=== PATIENT | female | born 1945 | race Caucasian/White ===

== ENCOUNTER 2021-11-11 13:31 | Observation (INO) ==
[2021-11-11 15:00] LABS: Basophils % 0.5 %; Immature Granulocytes % 0.4 % (0-4)
[2021-11-11 15:02] LABS: Basophils # 0.1 K/mcL (0.0-0.2); Eosinophils # 0.5 K/mcL (0.0-0.6); Eosinophils % 4.6 %; Hematocrit 23.2 % (35.3-44.9); Hemoglobin 6.4 g/dL (11.5-15.4); Lymphocytes # 1.2 K/mcL (0.6-4.6); Mean Corpuscular HGB Conc 27.6 g/dL (31.6-35.5); Mean Corpuscular Hemoglobin 19.7 pg (28.0-33.3); Mean Corpuscular Volume 71.4 fL (83.0-100.0); Mean Platelet Volume 9.7 fL (9.4-12.4); Monocytes # 0.9 K/mcL (0.0-1.3); Monocytes % 7.9 %; Neutrophils # 8.9 K/mcL (1.6-8.9); Platelet Count 310 K/mcL (140-400); Red Blood Count 3.25 M/mcL (3.82-4.97); Red Cell Distribution Width 18.6 % (11.5-14.5); Segmented Neutrophils % 76.6 %; White Blood Count 11.6 K/mcL (4.3-11.1)
[2021-11-11 15:21] LABS: BUN/Creatinine Ratio 23 (6-26); Blood Urea Nitrogen 12 mg/dL (8-23); Calcium 8.5 mg/dL (8.6-10.3); Carbon Dioxide 29 mEq/L (23-29); Chloride 109 mEq/L (98-107); Glucose 119 mg/dL (70-105); Osmolality,Calculated 287 (280-300); Potassium 3.4 mEq/L (3.5-5.1); Sodium 138 mEq/L (136-145); Troponin I 0.05 ng/mL (< 0.04); eGFR For African Americans > 60 (> 60); eGFR For Non-African Americans > 60 (> 60)
[2021-11-11 15:23] LABS: Anisocytosis 1+ (Not Present); Hypochromasia Present (Not Present); Platelet Estimate Normal (Normal)
[2021-11-11] MEDS ORDERED: Ondansetron 4 MG/2 ML VIAL IVP PRN (16:23)
[2021-11-11] MEDS ORDERED: Acetaminophen 325 MG TABLET PO PRN (16:23)
[2021-11-11] MEDS ORDERED: Naloxone 0.4 MG/ML INJ IVP PRN (16:23)
[2021-11-11] MEDS ORDERED: Perflutren Lipid Microsphere 1.3 ML in 0.9 % Sodium Chloride 8.7 ML IVP PRN (16:26)
[2021-11-11] MEDS ORDERED: Furosemide 40 MG/4 ML VIAL IVP ONE (16:26)
[2021-11-11] MEDS ORDERED: Ipratropium/Albuterol Neb 3 ML IH PRN (16:35)
[2021-11-11 17:07] LABS: Influenza A PCR Negative (Negative); Influenza B PCR Negative (Negative); Resp. Syncytial Virus PCR Negative (Negative)
[2021-11-11 17:30] LABS: SARS-CoV-2 by PCR (In House) Negative (Negative)
[2021-11-11] MEDS: predniSONE 20 MG TABLET PO SCH (18:06)
[2021-11-11] MEDS ORDERED: 0.9 % Sodium Chloride 250 ML ONE (18:47)
[2021-11-11] MEDS: Ipratropium/Albuterol Neb 3 ML IH SCH (22:54)
[2021-11-11 23:07] LABS: Hemoglobin 7.9 g/dL (11.5-15.4)
[2021-11-12] MEDS: Ipratropium/Albuterol Neb 3 ML IH SCH ×5 (04:34→20:32)
[2021-11-12 06:20] LABS: Basophils % 0.3 %; Eosinophils % 0.1 %; Immature Granulocytes % 0.5 % (0-4); Red Cell Distribution Width 18.9 % (11.5-14.5)
[2021-11-12 06:22] LABS: Hematocrit 26.7 % (35.3-44.9); Hemoglobin 7.4 g/dL (11.5-15.4); Lymphocytes # 0.7 K/mcL (0.6-4.6); Lymphocytes % 6.3 %; Mean Corpuscular HGB Conc 27.7 g/dL (31.6-35.5); Mean Corpuscular Hemoglobin 20.1 pg (28.0-33.3); Mean Corpuscular Volume 72.4 fL (83.0-100.0); Mean Platelet Volume 10.2 fL (9.4-12.4); Monocytes # 0.5 K/mcL (0.0-1.3); Monocytes % 3.9 %; Neutrophils # 10.4 K/mcL (1.6-8.9); Platelet Count 291 K/mcL (140-400); Red Blood Count 3.69 M/mcL (3.82-4.97); Segmented Neutrophils % 88.9 %; White Blood Count 11.7 K/mcL (4.3-11.1)
[2021-11-12 06:35] LABS: INR 1.1; Prothrombin Time 12.4 Seconds (9.4-12.1)
[2021-11-12 06:52] LABS: Anisocytosis 1+ (Not Present); BUN/Creatinine Ratio 25 (6-26); Blood Urea Nitrogen 13 mg/dL (8-23); Calcium 8.8 mg/dL (8.6-10.3); Carbon Dioxide 29 mEq/L (23-29); Chloride 105 mEq/L (98-107); Glucose 145 mg/dL (70-105); Hypochromasia Present (Not Present); Magnesium 1.8 mg/dL (1.6-2.6); Osmolality,Calculated 293 (280-300); Platelet Estimate Normal (Normal); Potassium 3.8 mEq/L (3.5-5.1); Sodium 140 mEq/L (136-145); Total Protein 6.1 g/dL (6.4-8.9); eGFR For African Americans > 60 (> 60); eGFR For Non-African Americans > 60 (> 60)
[2021-11-12 06:53] LABS: Chol/HDL Ratio 2.9 (0-4.9); Cholesterol 106 mg/dL (< 200); HDL Cholesterol 37 mg/dL (40-59); LDL Cholesterol,Calculated 60 mg/dL (< 100); Lactate Dehydrogenase 156 Units/L (140-271); Triglycerides 45 mg/dL (< 150); Troponin I 0.03 ng/mL (< 0.04)
[2021-11-12 07:40] LABS: Ferritin 8 ng/mL (10-120); Iron < 10 mcg/dL (50-170); Thyroid Stimulating Hormone 1.419 mcIU/mL (0.340-5.600)
[2021-11-12] MEDS: predniSONE 20 MG TABLET PO SCH (07:42)
[2021-11-12] MEDS: Aspirin Enteric Coated 81 MG Tablet PO SCH (10:44)
[2021-11-12] MEDS ORDERED: Furosemide 40 MG/4 ML VIAL IVP ONE (11:03)
[2021-11-12] MEDS ORDERED: Iron Sucrose Complex 400 MG in 0.9 % Sodium Chloride 250 ML IVPB ONE (11:03)
[2021-11-12 16:43] LABS: RBC,Pleural Fluid < 2000 RBC/mcL
[2021-11-12] MEDS ORDERED: SODIUM CHLORIDE/NAHCO3/KCL/PEG 4,000 ML SOLN.RECON PO ONE (17:00)
[2021-11-12 17:04] LABS: Total Protein,Pleural Fluid 4.2 g/dL
[2021-11-12 17:26] LABS: Appearance of Pleural Fl Hazy (Clear)
[2021-11-12 17:31] LABS: Basophils,Pleural Fluid 0 %; Eosinophils,Pleural Fluid 0 %
[2021-11-13 03:11] LABS: Eosinophils % 0.3 %; Monocytes % 7.4 %
[2021-11-13 03:12] LABS: Basophils % 0.1 %; Hemoglobin 7.9 g/dL (11.5-15.4); Immature Granulocytes % 0.5 % (0-4); Lymphocytes # 1.4 K/mcL (0.6-4.6); Lymphocytes % 8.9 %; Mean Corpuscular HGB Conc 28.2 g/dL (31.6-35.5); Mean Corpuscular Hemoglobin 20.3 pg (28.0-33.3); Mean Corpuscular Volume 71.8 fL (83.0-100.0); Mean Platelet Volume 9.5 fL (9.4-12.4); Monocytes # 1.2 K/mcL (0.0-1.3); Platelet Count 303 K/mcL (140-400); Red Cell Distribution Width 19.5 % (11.5-14.5); Segmented Neutrophils % 82.8 %; White Blood Count 15.7 K/mcL (4.3-11.1)
[2021-11-13 03:13] LABS: Eosinophils # 0.1 K/mcL (0.0-0.6)
[2021-11-13 03:28] LABS: BUN/Creatinine Ratio 25 (6-26); Blood Urea Nitrogen 16 mg/dL (8-23); Calcium 8.7 mg/dL (8.6-10.3); Carbon Dioxide 29 mEq/L (23-29); Chloride 104 mEq/L (98-107); Glucose 125 mg/dL (70-105); Osmolality,Calculated 289 (280-300); Potassium 3.6 mEq/L (3.5-5.1); Sodium 138 mEq/L (136-145); eGFR For African Americans > 60 (> 60); eGFR For Non-African Americans > 60 (> 60)
[2021-11-13 03:30] LABS: Hypochromasia Present (Not Present); Large Platelets Present (Not Present); Platelet Estimate Normal (Normal); Polychromasia 1+ (Not Present)
[2021-11-13] MEDS: Ipratropium/Albuterol Neb 3 ML IH SCH ×2 (04:19→08:21)
[2021-11-13 07:23] VITALS: BP 135/68; PULSE 90; TEMP 98; O2SAT 92
[2021-11-13] MEDS: Aspirin Enteric Coated 81 MG Tablet PO SCH (08:29)
[2021-11-13] MEDS: predniSONE 20 MG TABLET PO SCH (08:29)
[2021-11-14 13:23] LABS: Transferrin 288 mg/dL (200-400)
[2021-11-15 08:25] LABS: Fluid Source for Cholesterol PLEURAL FLUID
[2021-11-15 12:28] LABS: Cholesterol,Body Fluid 75 mg/dL
== END 2021-11-13 11:11 | disposition left against medical advice (07) ==
LOC: 3ANU 13:31 → EMEROOARM 13:31 → SUATTDRO 16:53 → 3ANU 17:21
PROVIDERS: ADMIT Family Medicine; ATTEND Internal Medicine

== ENCOUNTER 2021-12-17 12:36 | Observation (INO) ==
[2021-12-17 13:25] LABS: Hemoglobin 8.1 g/dL (11.5-15.4); Immature Granulocytes % 0.4 % (0-4); Mean Platelet Volume 9.6 fL (9.4-12.4); Red Cell Distribution Width 23.7 % (11.5-14.5)
[2021-12-17 13:27] LABS: Basophils # 0.1 K/mcL (0.0-0.2); Basophils % 0.5 %; Eosinophils # 0.4 K/mcL (0.0-0.6); Eosinophils % 3.7 %; Hematocrit 28.1 % (35.3-44.9); Lymphocytes % 10.2 %; Mean Corpuscular HGB Conc 28.8 g/dL (31.6-35.5); Mean Corpuscular Hemoglobin 22.8 pg (28.0-33.3); Mean Corpuscular Volume 79.2 fL (83.0-100.0); Monocytes # 0.7 K/mcL (0.0-1.3); Neutrophils # 7.8 K/mcL (1.6-8.9); Platelet Count 259 K/mcL (140-400); Red Blood Count 3.55 M/mcL (3.82-4.97); Segmented Neutrophils % 78.2 %
[2021-12-17 14:01] LABS: Anisocytosis 2+ (Not Present); Hypochromasia Present (Not Present); Platelet Estimate Normal (Normal)
[2021-12-17 14:19] LABS: BUN/Creatinine Ratio 36 (6-26); Blood Urea Nitrogen 27 mg/dL (8-23); Calcium 8.9 mg/dL (8.6-10.3); Carbon Dioxide 29 mEq/L (23-29); Chloride 107 mEq/L (98-107); Glucose 91 mg/dL (70-105); Osmolality,Calculated 303 (280-300); Potassium 3.8 mEq/L (3.5-5.1); Sodium 144 mEq/L (136-145); Troponin I 0.05 ng/mL (< 0.04); eGFR For African Americans > 60 (> 60); eGFR For Non-African Americans > 60 (> 60)
[2021-12-17 15:42] LABS: Lactate Dehydrogenase 165 Units/L (140-271); Total Protein 6.3 g/dL (6.4-8.9)
[2021-12-17] MEDS ORDERED: Naloxone 0.4 MG/ML INJ IVP PRN (15:59)
[2021-12-17] MEDS ORDERED: Ondansetron ODT 4 MG TAB.RAPDIS SL PRN (15:59)
[2021-12-17] MEDS ORDERED: Sennosides/Docusate Sodium TABLET PO PRN (17:34)
[2021-12-17] MEDS: cilostazoL 100 MG TABLET PO SCH (20:36)
[2021-12-18 01:26] LABS: Basophils # 0.1 K/mcL (0.0-0.2); Basophils % 0.4 %; Eosinophils # 0.5 K/mcL (0.0-0.6); Hematocrit 24.4 % (35.3-44.9); Hemoglobin 7.2 g/dL (11.5-15.4); Immature Granulocytes % 0.3 % (0-4); Lymphocytes # 1.5 K/mcL (0.6-4.6); Lymphocytes % 12.7 %; Mean Corpuscular HGB Conc 29.5 g/dL (31.6-35.5); Mean Corpuscular Hemoglobin 23.6 pg (28.0-33.3); Mean Platelet Volume 9.6 fL (9.4-12.4); Monocytes # 0.8 K/mcL (0.0-1.3); Monocytes % 6.8 %; Neutrophils # 8.8 K/mcL (1.6-8.9); Platelet Count 233 K/mcL (140-400); Red Blood Count 3.05 M/mcL (3.82-4.97); Red Cell Distribution Width 23.3 % (11.5-14.5); Segmented Neutrophils % 75.8 %; White Blood Count 11.6 K/mcL (4.3-11.1)
[2021-12-18 01:33] LABS: Anisocytosis 2+ (Not Present); Platelet Estimate Normal (Normal)
[2021-12-18 01:36] LABS: INR 1.2; Prothrombin Time 12.9 Seconds (9.4-12.1)
[2021-12-18 01:50] LABS: Alanine Aminotransferase 7 Units/L (7-52); Albumin 3.3 g/dL (3.5-5.7); Albumin/Globulin Ratio 1.8 (1.1-2.2); Alkaline Phosphatase 85 Units/L (34-104); Aspartate Amino Transferase 11 Units/L (13-39); BUN/Creatinine Ratio 37 (6-26); Bilirubin,Total 0.3 mg/dL (0.3-1.0); Blood Urea Nitrogen 26 mg/dL (8-23); Calcium 8.3 mg/dL (8.6-10.3); Carbon Dioxide 28 mEq/L (23-29); Chloride 111 mEq/L (98-107); Globulin 1.8 g/dL (2.4-3.5); Glucose 99 mg/dL (70-105); Magnesium 1.9 mg/dL (1.6-2.6); Osmolality,Calculated 303 (280-300); Phosphorous 3.9 mg/dL (2.7-4.5); Potassium 3.7 mEq/L (3.5-5.1); Sodium 144 mEq/L (136-145); Total Protein 5.1 g/dL (6.4-8.9); eGFR For African Americans > 60 (> 60); eGFR For Non-African Americans > 60 (> 60)
[2021-12-18] MEDS: Acetaminophen 325 MG TABLET PO PRN ×2 (03:49→16:07)
[2021-12-18] MEDS ORDERED: lisinopriL 20 MG TABLET PO SCH (09:00)
[2021-12-18] MEDS ORDERED: Aspirin Enteric Coated 81 MG Tablet PO SCH (09:00)
[2021-12-18] MEDS ORDERED: amLODIPine 5 MG TABLET PO SCH (09:00)
[2021-12-18] MEDS: cilostazoL 100 MG TABLET PO SCH ×2 (09:35→22:54)
[2021-12-18 15:42] VITALS: PULSE 93
[2021-12-18] MEDS ORDERED: Doxycycline 100 MG in 0.9 % Sodium Chloride Mini Bag 100 ML IVPB SCH (18:00)
[2021-12-18] MEDS ORDERED: cefTRIAXone 1,000 MG in 0.9 % Sodium Chloride Mini Bag 100 ML IVP SCH (18:00)
[2021-12-18 20:11] VITALS: BP 137/71; TEMP 98; O2SAT 92
== END 2021-12-18 23:10 | disposition left against medical advice (07) ==
LOC: EMEROOARM 12:36 → 2ANU 12:36
PROVIDERS: ADMIT General Practice; ATTEND General Practice

== ENCOUNTER 2022-01-26 16:00 | Inpatient (IN) ==
[2022-01-26] MEDS ORDERED: Furosemide 40 MG/4 ML VIAL IVP ONE (21:39)
[2022-01-26] MEDS ORDERED: Morphine Sulfate 2 MG/ML SYRINGE IVP ONE (21:39)
[2022-01-26 22:04] LABS: BUN/Creatinine Ratio 26 (6-26); Blood Urea Nitrogen 51 mg/dL (8-23); Calcium 8.8 mg/dL (8.6-10.3); Carbon Dioxide 12 mEq/L (23-29); Chloride 111 mEq/L (98-107); Glucose 94 mg/dL (70-105); Osmolality,Calculated 309 (280-300); Potassium 3.5 mEq/L (3.5-5.1); Sodium 143 mEq/L (136-145); Troponin I < 0.03 ng/mL (< 0.04); eGFR For African Americans 30 (> 60); eGFR For Non-African Americans 25 (> 60)
[2022-01-26 22:22] LABS: VBG HCO3 22 mEq/L (21-27); VBG PCO2 51 mmHg (41-51); VBG PH 7.24 pH Units (7.32-7.42); VBG PO2 44 mmHg (25-50)
[2022-01-26 22:46] LABS: Basophils # 0.1 K/mcL (0.0-0.2); Basophils % 0.5 %; Eosinophils # 0.4 K/mcL (0.0-0.6); Eosinophils % 3.3 %; Hematocrit 21.3 % (35.3-44.9); Hemoglobin 6.3 g/dL (11.5-15.4); Immature Granulocytes % 0.3 % (0-4); Lymphocytes % 8.3 %; Mean Corpuscular HGB Conc 29.6 g/dL (31.6-35.5); Mean Corpuscular Volume 74.5 fL (83.0-100.0); Mean Platelet Volume 9.6 fL (9.4-12.4); Monocytes # 1.1 K/mcL (0.0-1.3); Monocytes % 8.5 %; Neutrophils # 9.8 K/mcL (1.6-8.9); Platelet Count 313 K/mcL (140-400); Red Blood Count 2.86 M/mcL (3.82-4.97); Red Cell Distribution Width 18.8 % (11.5-14.5); Segmented Neutrophils % 79.1 %; White Blood Count 12.4 K/mcL (4.3-11.1)
[2022-01-26] MEDS ORDERED: Ondansetron ODT 4 MG TAB.RAPDIS SL PRN (23:46)
[2022-01-26] MEDS ORDERED: Naloxone 0.4 MG/ML INJ IVP PRN (23:46)
[2022-01-27] MEDS ORDERED: Ipratropium/Albuterol Neb 3 ML IH PRN (01:00)
[2022-01-27] MEDS ORDERED: 0.9 % Sodium Chloride 500 ML ONE (02:02)
[2022-01-27 02:43] LABS: Influenza A PCR Negative (Negative); Influenza B PCR Negative (Negative); Resp. Syncytial Virus PCR Negative (Negative)
[2022-01-27 02:46] LABS: SARS-CoV-2 by PCR (In House) Negative (Negative)
[2022-01-27] MEDS ORDERED: Iron Sucrose Complex 400 MG in 0.9 % Sodium Chloride 250 ML IVPB ONE (03:00)
[2022-01-27 03:17] LABS: C-Reactive Protein 23 mg/L (Less than 10); Lactate Dehydrogenase 218 Units/L (140-271); Total Protein 6.3 g/dL (6.4-8.9)
[2022-01-27] MEDS ORDERED: Vancomycin 1 EACH in 0.9 % Sodium Chloride 250 ML IVPB PRN (04:00)
[2022-01-27 04:38] LABS: Sodium, Urine 91.8 mEq/L
[2022-01-27] MEDS: Cefepime HCl 2,000 MG in 0.9 % Sodium Chloride 10 ML IVP SCH (05:29)
[2022-01-27] MEDS ORDERED: *HR* Heparin 5,000 UNIT/ML VIAL SQ SCH (06:00)
[2022-01-27] MEDS: Sodium Bicarbonate 75 MEQ in 0.45 % Sodium Chloride 1,000 ML IVC SCH (06:13)
[2022-01-27] MEDS ORDERED: Cefepime HCl 2,000 MG in 0.9 % Sodium Chloride 10 ML IVP SCH (08:00)
[2022-01-27 12:58] LABS: Hematocrit 26.6 % (35.3-44.9); Hemoglobin 7.9 g/dL (11.5-15.4)
[2022-01-27 13:21] LABS: Albumin 3.6 g/dL (3.5-5.7); Albumin/Globulin Ratio 1.7 (1.1-2.2); Bilirubin,Total 0.7 mg/dL (0.3-1.0); Calcium 8.4 mg/dL (8.6-10.3); Globulin 2.1 g/dL (2.4-3.5); Potassium 3.2 mEq/L (3.5-5.1); Total Protein 5.7 g/dL (6.4-8.9)
[2022-01-27 13:55] LABS: RBC,Pleural Fluid 5000 RBC/mcL
[2022-01-27 13:58] LABS: Appearance of Pleural Fl Clear (Clear)
[2022-01-27 14:28] LABS: Total Protein,Pleural Fluid 4.6 g/dL
[2022-01-27] MEDS ORDERED: Sodium Bicarbonate 75 MEQ in D5% in Water 1,000 ML IVC SCH (14:45)
[2022-01-27 15:05] LABS: Lymphocytes,Pleural Fluid 12 %
[2022-01-27 21:10] LABS: Calcium 8.4 mg/dL (8.6-10.3); Potassium 3.3 mEq/L (3.5-5.1)
[2022-01-27 22:13] LABS: Hematocrit 26.3 % (35.3-44.9); Hemoglobin 7.5 g/dL (11.5-15.4)
[2022-01-28] MEDS: MetroNIDAZOLE 500 MG/100 ML 500 MG/100 ML BAG IVPB SCH ×3 (01:45→17:01)
[2022-01-28] MEDS: Cefepime HCl 2,000 MG in 0.9 % Sodium Chloride 10 ML IVP SCH ×2 (03:07→17:01)
[2022-01-28 03:21] LABS: Basophils # 0.1 K/mcL (0.0-0.2); Basophils % 0.5 %; Eosinophils # 0.6 K/mcL (0.0-0.6); Eosinophils % 4.9 %; Hematocrit 25.7 % (35.3-44.9); Hemoglobin 7.6 g/dL (11.5-15.4); Immature Granulocytes % 0.7 % (0-4); Lymphocytes # 1.4 K/mcL (0.6-4.6); Lymphocytes % 11.2 %; Mean Corpuscular HGB Conc 29.6 g/dL (31.6-35.5); Mean Corpuscular Hemoglobin 22.8 pg (28.0-33.3); Mean Corpuscular Volume 77.2 fL (83.0-100.0); Mean Platelet Volume 9.6 fL (9.4-12.4); Monocytes % 7.5 %; Neutrophils # 9.6 K/mcL (1.6-8.9); Platelet Count 314 K/mcL (140-400); Red Blood Count 3.33 M/mcL (3.82-4.97); Red Cell Distribution Width 18.6 % (11.5-14.5); Segmented Neutrophils % 75.2 %; White Blood Count 12.8 K/mcL (4.3-11.1)
[2022-01-28 03:40] LABS: INR 1.2; Prothrombin Time 13.9 Seconds (9.4-12.1)
[2022-01-28 04:03] LABS: Calcium 8.4 mg/dL (8.6-10.3); Potassium 3.1 mEq/L (3.5-5.1)
[2022-01-28] MEDS ORDERED: Potassium Chloride Elixir 20 MEQ/15 ML UDC PO ONE ×2 (07:00→14:25)
[2022-01-28] MEDS ORDERED: amLODIPine 5 MG TABLET PO SCH (09:00)
[2022-01-28] MEDS ORDERED: *HR* FentaNYL (PF) 100 MCG/2 ML VIAL ONE (11:04)
[2022-01-28] MEDS ORDERED: *HR* EPINEPHrine 1 MG/10 ML SYRINGE ONE (11:05)
[2022-01-28] MEDS ORDERED: *HR* Midazolam HCl 5 MG/5 ML VIAL IVP ONE (11:05)
[2022-01-28] MEDS ORDERED: *HR* Midazolam HCl 2 MG/2 ML VIAL IVP ONE (11:17)
[2022-01-28] MEDS ORDERED: *HR* FentaNYL (PF) 100 MCG/2 ML VIAL IVP ONE (11:18)
[2022-01-28] MEDS ORDERED: *HR* OxyCODONE Immed Rel 5 MG TABLET PO PRN (20:23)
[2022-01-28] MEDS ORDERED: Acetaminophen 325 MG TABLET PO PRN (20:23)
[2022-01-28] MEDS ORDERED: Naloxone 0.4 MG/ML INJ IVP PRN (20:23)
[2022-01-28] MEDS: Melatonin 3 MG TABLET PO PRN (20:32)
[2022-01-28] MEDS: *HR* HYDROcodone/Acet 5/325 mg TABLET PO PRN (20:32)
[2022-01-29] MEDS: MetroNIDAZOLE 500 MG/100 ML 500 MG/100 ML BAG IVPB SCH ×4 (01:10→23:08)
[2022-01-29] MEDS: Cefepime HCl 2,000 MG in 0.9 % Sodium Chloride 10 ML IVP SCH ×2 (02:16→15:33)
[2022-01-29] MEDS: *HR* HYDROcodone/Acet 5/325 mg TABLET PO PRN ×2 (03:09→15:57)
[2022-01-29 04:29] LABS: Fluid Source for Cholesterol PLEURAL FLUID
[2022-01-29] MEDS: Potassium Chloride Elixir 20 MEQ/15 ML UDC PO SCH (09:01)
[2022-01-29] MEDS ORDERED: 0.9 % Sodium Chloride 1,000 ML IVC SCH (09:45)
[2022-01-29 11:17] LABS: Cholesterol,Body Fluid 104 mg/dL
[2022-01-29] MEDS: *HR* Heparin 5,000 UNIT/ML VIAL SQ SCH (22:36)
[2022-01-29] MEDS: Melatonin 3 MG TABLET PO PRN (22:37)
[2022-01-29] MEDS ORDERED: Ketorolac 30 MG/ML VIAL IVP ONE (22:48)
[2022-01-30 00:27] LABS: Mycoplasma pneumoniae IgG 0.08 U/L (<=0.09)
[2022-01-30] MEDS: Cefepime HCl 2,000 MG in 0.9 % Sodium Chloride 10 ML IVP SCH ×2 (03:13→14:07)
[2022-01-30] MEDS: *HR* HYDROcodone/Acet 5/325 mg TABLET PO PRN (03:13)
[2022-01-30] MEDS: *HR* Heparin 5,000 UNIT/ML VIAL SQ SCH ×3 (05:41→21:39)
[2022-01-30 06:51] LABS: Hemoglobin 7.6 g/dL (11.5-15.4)
[2022-01-30 06:53] LABS: Basophils # 0.1 K/mcL (0.0-0.2); Basophils % 0.7 %; Eosinophils # 0.4 K/mcL (0.0-0.6); Eosinophils % 2.6 %; Hematocrit 26.3 % (35.3-44.9); Lymphocytes # 0.8 K/mcL (0.6-4.6); Lymphocytes % 5.7 %; Mean Corpuscular HGB Conc 28.9 g/dL (31.6-35.5); Mean Corpuscular Hemoglobin 22.9 pg (28.0-33.3); Mean Corpuscular Volume 79.2 fL (83.0-100.0); Mean Platelet Volume 10.1 fL (9.4-12.4); Monocytes # 1.2 K/mcL (0.0-1.3); Monocytes % 8.4 %; Neutrophils # 11.2 K/mcL (1.6-8.9); Platelet Count 325 K/mcL (140-400); Red Blood Count 3.32 M/mcL (3.82-4.97); Red Cell Distribution Width 18.9 % (11.5-14.5); Segmented Neutrophils % 81.6 %; White Blood Count 13.7 K/mcL (4.3-11.1)
[2022-01-30 07:11] LABS: BUN/Creatinine Ratio 39 (6-26); Blood Urea Nitrogen 38 mg/dL (8-23); Calcium 8.3 mg/dL (8.6-10.3); Carbon Dioxide 24 mEq/L (23-29); Chloride 119 mEq/L (98-107); Glucose 116 mg/dL (70-105); Magnesium 1.8 mg/dL (1.6-2.6); Osmolality,Calculated 314 (280-300); Potassium 4.1 mEq/L (3.5-5.1); Sodium 147 mEq/L (136-145); eGFR For African Americans > 60 (> 60); eGFR For Non-African Americans 56 (> 60)
[2022-01-30 07:12] LABS: Hypochromasia Present (Not Present); Platelet Estimate Normal (Normal)
[2022-01-30] MEDS: MetroNIDAZOLE 500 MG/100 ML 500 MG/100 ML BAG IVPB SCH (09:07)
[2022-01-30] MEDS: Potassium Chloride Elixir 20 MEQ/15 ML UDC PO SCH (09:08)
[2022-01-30] MEDS ORDERED: Ringers Solution, Lactated 1,000 ML IVC SCH (09:30)
[2022-01-30] MEDS: Sodium Bicarbonate 75 MEQ in 0.45 % Sodium Chloride 1,000 ML IVC SCH (10:35)
[2022-01-30] MEDS ORDERED: Morphine Sulfate 2 MG/ML SYRINGE IVP PRN (15:28)
[2022-01-30 17:11] VITALS: TEMP 97.6
[2022-01-31 06:00] VITALS: BP 122/59; PULSE 78
[2022-01-31] MEDS: *HR* Heparin 5,000 UNIT/ML VIAL SQ SCH (06:15)
[2022-01-31 07:33] VITALS: O2SAT 98
== END 2022-01-31 11:03 | disposition hospice, inpatient (51) | DRG 189 ==
LOC: 2NENU 16:00 → EMEROOARM 16:00 → SUATTDRO 23:33 → 2NENU 01-27 01:13 → SUATTDRO 01-27 12:44
PROVIDERS: ADMIT Internal Medicine; ATTEND Internal Medicine

== ENCOUNTER 2022-01-31 10:08 | Inpatient (IN) ==
[2022-01-31] MEDS ORDERED: Bisacodyl 10 MG RECTAL SUPPOSITORY RC PRN (10:19)
[2022-01-31] MEDS ORDERED: Haloperidol Lactate 5 MG/ML VIAL IVP PRN (10:19)
[2022-01-31] MEDS ORDERED: Acetaminophen 650 MG RECTAL SUPP RC PRN (10:23)
[2022-01-31] MEDS ORDERED: *HR* LORazepam Oral Conc 2 MG/ML SL PRN (11:19)
[2022-01-31] MEDS: Morphine Sulfate 2 MG/ML SYRINGE IVP PRN ×3 (11:21→19:30)
[2022-01-31] MEDS: Atropine Sulfate 1% 40 DROP/2 ML BOTTLE SL PRN ×2 (16:31→18:22)
[2022-01-31 19:02] VITALS: BP 130/57; PULSE 91; TEMP 97.5; O2SAT 85
[2022-02-01] MEDS: Morphine Sulfate 2 MG/ML SYRINGE IVP PRN ×3 (01:21→11:00)
[2022-02-01] MEDS: Atropine Sulfate 1% 40 DROP/2 ML BOTTLE SL PRN (07:53)
== END 2022-02-01 11:16 | disposition expired | DRG 951 ==
LOC: 2ANU 10:10
PROVIDERS: ADMIT Internal Medicine Hospice and Palliative Medicine; ATTEND Internal Medicine Hospice and Palliative Medicine